=== PATIENT | female | born 1950 | race Caucasian/White ===

== ENCOUNTER → 2024-02-05 13:57 | Outpatient (REF) | payer MEDICARE, OTHER, SELFPAY | LOC: WDC 13:57 | PROVIDERS: ATTENDING PHYSICIAN Nurse Practitioner Family | DX: Z12.31 Encounter for screening mammogram for malignant neoplasm of breast (principal); Z85.3 Personal history of malignant neoplasm of breast; C50.511 Malignant neoplasm of lower-outer quadrant of right female breast | CPT/HCPCS: 77063; 77067 ==

== ENCOUNTER → 2025-02-05 13:47 | Outpatient (REF) | payer MEDICARE, OTHER, SELFPAY | LOC: WDC 13:47 | PROVIDERS: ATTENDING PHYSICIAN Surgery Surgical Oncology; FAMILY PHYSICIAN Family Medicine | DX: C50.511 Malignant neoplasm of lower-outer quadrant of right female breast (principal); Z12.31 Encounter for screening mammogram for malignant neoplasm of breast | CPT/HCPCS: 77063; 77067 ==